=== PATIENT | female | born 1945 | race Caucasian/White ===

== ENCOUNTER 2018-06-13 07:25 | Outpatient (CLI) | payer OTHER | END 2018-06-13 07:31 | disposition home or self-care (01) | LOC: SONOGRAMA 07:25 | DX: E04.1 Nontoxic single thyroid nodule (principal) ==

== ENCOUNTER 2023-02-16 07:09 | Outpatient (CLI) | payer OTHER | END 2023-02-16 07:15 | disposition home or self-care (01) | LOC: RX STUDY 07:09 | DX: C56.9 Malignant neoplasm of unspecified ovary (principal) ==